=== PATIENT | female | born 1975 | race Caucasian/White ===

== ENCOUNTER 2016-08-20 12:25 | Emergency (ER) | payer MEDICAID, OTHER ==
[~2016-08-20] VITALS: Ht 149.9 cm; Wt 60.9 kg
[2016-08-20 12:41] VITALS: BP 113/67; PULSE 83; RESP 16; TEMP 98.3; O2SAT 99
--- NOTE | 2016-08-20 13:05 | PD ---
HPI Chief Complaint: Eye Problems/Injury Time Seen by Provider: 13:05 Travel History International Travel<30 days: No Contact w/Intl Traveler<30days: No Traveled to known affect area: No History of Present Illness HPI 41-year-old female presents to the ED for evaluation of 3 day history of left eye redness, pain and swelling of the eyelid. Gradual onset. Patient denies blurred vision, headaches. She states the pain radiates to the left side of her mouth. She treated with warm compresses 10 minutes at a time 4-5 times a day with no improvement of pain. She states that she also tried to squeeze the area. She also complains of foreign body sensation and blurred vision of the right eye. Onset yesterday afternoon. She states that she was helping kids clean up glitter and feels as if a piece may be in her eye. She rinsed multiple times with artificial tears with no improvement of symptoms. PFSH Past Medical History Medical History: Denies Significant Hx Diminished Hearing: No Tetanus Vaccination: < 5 Years Influenza Vaccination: No ?: Unknown LMP: 08/01/16 Social History Alcohol Use: No Tobacco Use: Yes (5 cigs day) Substance Use: No Allergies-Medications (Allergen,Severity, Reaction): Coded Allergies: No Known Allergies (Unverified , 08/20/16) Reported Meds & Prescriptions Reported Meds & Active Scripts Active Erythromycin Opth Oint 5 Mg/Gm Oint 1 Applic EACH EYE QID Review of Systems Except as stated in HPI: all other systems reviewed are Neg Physical Exam Narrative GENERAL: Well-nourished, well-developed white female in no acute distress. SKIN: Focused skin assessment warm/dry. Bruising and edema around the left eye. HEAD: Normocephalic. EYES: No scleral icterus. PERRLA. EOMI. Increased drainage bilaterally. FUNDUSCOPIC EXAM: The bilateral funduscopic exam appeared within normal limits without papilledema, A-V nicking or blood associated with the optic disc. OD: There is a small metallic foreign body just slightly right of center over the pupil. This was easily removed with a Q-tip. Fluorescein staining reveals corneal abrasion in the same area. No disturbance of the palpebral surface. OS: There is a 1 cm hordeolum of the lower lid, just lateral to the medial canthus. It's erythematous, tender and warm. Fluorescein staining reveals no corneal abrasion. NECK: Supple, trachea midline. No JVD or lymphadenopathy. CARDIOVASCULAR: Regular rate and rhythm without murmurs, gallops, or rubs. RESPIRATORY: Breath sounds equal bilaterally. No accessory muscle use. GASTROINTESTINAL: Abdomen soft, non-tender, nondistended. MUSCULOSKELETAL: No cyanosis, or edema. The patient is a laboratory moves extremities spontaneously. BACK: Nontender without obvious deformity. No CVA tenderness. Data Data Last Documented VS Vital Signs Date Time Temp Pulse Resp B/P Pulse Ox O2 Delivery O2 Flow Rate FiO2 08/20/16 12:41 98.3 83 16 113/67 99 Orders Ibuprofen (Motrin) (08/20/16 13:30) MDM Medical Decision Making Medical Screen Exam Complete: Yes Emergency Medical Condition: Yes Differential Diagnosis Hordeolum versus chalazion versus foreign body versus renal abrasion versus other Narrative Course 41-year-old female presents to the ED for evaluation of 3 day history of left eye redness, pain and swelling of the eyelid. Gradual onset. Patient denies blurred vision, headaches. She states the pain radiates to the left side of her mouth. She treated with warm compresses 10 minutes at a time 4-5 times a day with no improvement of pain. She states that she also tried to squeeze the area. She also complains of foreign body sensation and blurred vision of the right eye. Onset yesterday afternoon. She states that she was helping kids clean up glitter and feels as if a piece may be in her eye. She rinsed multiple times with artificial tears with no improvement of symptoms. Vitals reviewed. Physical exam reveals a nontoxic-appearing white female in no acute distress. EYES: No scleral icterus. PERRLA. EOMI. Increased drainage bilaterally. Limited funduscopic exam normal bilaterally. OD: There is a small metallic foreign body just slightly right of center over the pupil. This was easily removed with a Q-tip. Fluorescein staining reveals corneal abrasion in the same area. No disturbance of the palpebral surface. OS: There is a 1 cm hordeolum of the lower lid, just lateral to the medial canthus. It's erythematous, tender and warm. Fluorescein staining reveals no corneal abrasion. Foreign body removal was performed. Please see my procedure note for details. I spoke with Dr. Nicole Preciado, on-call ice cream server, who agrees to see the patient on an outpatient basis. Patient was prescribed erythromycin ointment 4 times a day for bilateral eyes, she was provided with Dr. Preciado's contact information and instructed to follow up today. She indicated understanding of the instructions and is agreeable to the care plan. The patient is stable and discharged home. Procedures Procedure Narrative Foreign body removal: A single drop of proparacaine was instilled into the right eye. A Q-tip was used to remove a miniscule metallic foreign object from the center of the pupil, consistent with glitter. Fluorescein staining reveals corneal abrasion in the same area. The eye was flushed with copious saline. Patient tolerated the procedure well. Diagnosis Primary Impression: Foreign body of right eye Qualified Code: T15.91XA - Foreign body of right eye, initial encounter Additional Impressions: History of retained foreign body fully removed Corneal abrasion, right Qualified Code: S05.01XA - Corneal abrasion, right, initial encounter Hordeolum internum left lower eyelid Referrals: Nicole Preciado MD Patient Instructions: Corneal Abrasion (ED), General Instructions, Stye (ED) Additional Instructions: Rest, hydrate. Continue with warm compresses of the left eye 15-20 minutes at a time, 5-6 times per day. Polytrim 1 drop 4 times a day [address] Nicole Preciado's office today for follow-up appointment. Return to the ED for any urgent or emergent medical condition. Med/Other Pt SpecificInfo: Prescription(s) given Scripts Erythromycin Opth Oint 5 Mg/Gm Oint1 Applic EACH EYE QID #1 TUBE Ref 0 Prov:Hannah Lowe MD 08/20/16 Disposition: 01 DISCHARGE HOME Condition: Stable Kindra Irby Aug 20, 2016 13:05
[2016-08-20] MEDS ORDERED: IBUPROFEN 800 MG TAB PO ONE (13:30)
[2016-08-20] MEDS ORDERED: ERYTOIN10 EACH EYE (13:40)
== END 2016-08-20 13:44 | disposition home or self-care (01) ==
LOC: PHEFT 12:25
DX: S05.01XA Injury of conjunctiva and corneal abrasion without foreign body, right eye, initial encounter (principal); T15.91XA Foreign body on external eye, part unspecified, right eye, initial encounter; Z72.0 Tobacco use
CPT/HCPCS: 65220

== ENCOUNTER 2016-11-18 05:36 | Emergency (ER) | payer MEDICAID, OTHER ==
[~2016-11-18] VITALS: Ht 162.6 cm; Wt 60.0 kg
[~2016-11-18 05:36] MED LIST: ERYTOIN10 EACH EYE
[2016-11-18 05:42] VITALS: BP 134/86; PULSE 100; RESP 20; TEMP 99.2; O2SAT 98
[2016-11-18] MEDS ORDERED: SUBO8MIS SL (05:49)
[2016-11-18] MEDS ORDERED: ONDANSETRON ODT 4 MG TAB PO ONE (06:00)
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
[2016-11-18] MEDS ORDERED: IBUP800T23 PO (07:13)
== END 2016-11-18 07:41 | disposition home or self-care (01) ==
LOC: NEPD 05:36
DX: M54.2 Cervicalgia (principal); S00.83XA Contusion of other part of head, initial encounter; S50.12XA Contusion of left forearm, initial encounter; S80.01XA Contusion of right knee, initial encounter; F17.210 Nicotine dependence, cigarettes, uncomplicated; Z79.899 Other long term (current) drug therapy; Z88.6 Allergy status to analgesic agent; Y08.09XA Assault by strike by other specified type of sport equipment, initial encounter
CPT/HCPCS: 70450; 70486; 72125; 73630; 99285

== ENCOUNTER 2017-06-05 11:05 | Emergency (ER) | payer OTHER ==
[~2017-06-05 11:05] MED LIST changes: +IBUP1TAB7 PO; +SUBO8MIS SL
[2017-06-05 11:18] VITALS: BP 115/58; PULSE 71; RESP 16; TEMP 99; O2SAT 98
[2017-06-05] MEDS ORDERED: SODIUM CHLOR 0.9% 1000 ML INJ 1,000 ML IV SCH (11:50)
[2017-06-05] MEDS ORDERED: ALPR.5 PO (11:50)
--- NOTE | 2017-06-05 11:54 | PD ---
HPI Chief Complaint: GI Complaint Time Seen by Provider: 11:37 Travel History International Travel<30 days: No Contact w/Intl Traveler<30days: No Traveled to known affect area: No History of Present Illness HPI 42-year-old female presents for evaluation of abdominal pain, nausea, vomiting, diarrhea. She woke up at 3 AM this morning since then has had multiple episodes of nonbloody nonbilious emesis, watery diarrhea. She tried drinking eloisa katerina and was able to keep down only a few sips. She endorses some crampy discomfort in the epigastrium as well as slight cough, myalgias, mild sore throat. Her daughter was recently diagnosed with streptococcal pharyngitis. Denies dysuria, flank pain, vaginal bleeding or discharge. No history of abdominal surgeries. No other complaints at this time. PFSH Past Medical History Diabetes: No Diminished Hearing: No Immunizations Current: Yes Migraines: Yes Tetanus Vaccination: < 5 Years Influenza Vaccination: No ?: Not LMP: 05/10/17 : 2 Para: 2 Tubal Ligation: Yes Past Surgical History Section: Yes Social History Alcohol Use: Yes (OCCASIONAL) Tobacco Use: Yes (5 cigs day) Substance Use: No Allergies-Medications (Allergen,Severity, Reaction): Coded Allergies: aspirin (Verified Allergy, Unknown, 06/05/17) Reported Meds & Prescriptions Reported Meds & Active Scripts Active Zofran (Ondansetron HCl) 4 Mg Tab 4 Mg PO Q6HR PRN Reported Xanax (Alprazolam) 0.5 Mg Tab 0.5 Mg PO BID PRN Suboxone Sublingual Film (Buprenorphine-Naloxone Sublingual Film) 8-2 Mg Film 1 Film SL Unique ID number required: Review of Systems Except as stated in HPI: all other systems reviewed are Neg Physical Exam Narrative GENERAL: Well-developed well-nourished female in no acute distress SKIN: Warm and dry. HEAD: Atraumatic. Normocephalic. EYES: Pupils equal and round. No scleral icterus. No injection or drainage. ENT: No nasal bleeding or discharge. Mucous membranes pink and moist. NECK: Trachea midline. No JVD. CARDIOVASCULAR: Regular rate and rhythm. No murmur appreciated. RESPIRATORY: No accessory muscle use. Clear to auscultation. Breath sounds equal bilaterally. GASTROINTESTINAL: Abdomen soft, mild tenderness to palpation in the epigastrium and suprapubic region without guarding. No tenderness to palpation over McBurney's point, no right upper quadrant tenderness. MUSCULOSKELETAL: No obvious deformities. No clubbing. No cyanosis. No edema. NEUROLOGICAL: Awake and alert. No obvious cranial nerve deficits. Motor grossly within normal limits. Normal speech. PSYCHIATRIC: Appropriate mood and affect; insight and judgment normal. Data Data Last Documented VS Vital Signs Date Time Temp Pulse Resp B/P (MAP) Pulse Ox O2 Delivery O2 Flow Rate FiO2 06/05/17 11:18 99.0 71 16 115/58 (77) 98 Orders Orders Ed Urine Pregnancytest Poc (06/05/17 11:38) Complete Blood Count With Diff (06/05/17 11:50) Comprehensive Metabolic Panel (06/05/17 11:50) Lipase (06/05/17 11:50) Urinalysis - C+S If Indicated (06/05/17 11:50) Iv Access Insert/Monitor (06/05/17 11:50) Ondansetron Inj (Zofran Inj) (06/05/17 12:00) Pantoprazole Inj (Protonix Inj) (06/05/17 12:00) Sodium Chlor 0.9% 1000 Ml Inj (Ns 1000 M (06/05/17 11:50) Al-Mag Hy-Si 40-40-4 Mg/Ml Liq (Mag-Al P (06/05/17 12:00) Lidocaine 2% Viscous (Xylocaine 2% Visco (06/05/17 12:00) Influenzae A/B Antigen (06/05/17 11:50) Group A Rapid Strep Screen (06/05/17 11:50) Strep Culture (Group A) (06/05/17 12:12) Urine Culture (06/05/17 11:58) Ed Discharge Order (06/05/17 13:13) Labs Laboratory Tests Test 06/05/17 11:58 06/05/17 12:12 Urine Collection Type CLEAN CATCH Urine Color YELLOW Urine Turbidity SLIGHT Urine pH 7.5 Urine Specific [place] 1.025 Urine Protein NEG mg/dL Urine Glucose (UA) NEG mg/dL Urine Ketones NEG mg/dL Urine Occult Blood NEG Urine Nitrite POS Urine Bilirubin NEG Urine Leukocyte Esterase NEG Urine RBC 0-3 /hpf Urine WBC 3-5 /hpf Urine Squamous Epithelial Cells 6-8 /hpf Urine Amorphous Sediment FEW Urine Bacteria MANY /hpf Microscopic Urinalysis Comment CULTURE INDICATED Urine Collection Time 1158 White Blood Count 9.4 TH/MM3 Red Blood Count 4.19 MIL/MM3 Hemoglobin 12.8 GM/DL Hematocrit 39.2 % Mean Corpuscular Volume 93.6 FL Mean Corpuscular Hemoglobin 30.6 PG Mean Corpuscular Hemoglobin Concent 32.7 % Red Cell Distribution Width 13.1 % Platelet Count 241 TH/MM3 Mean Platelet Volume 7.8 FL Neutrophils (%) (Auto) 69.0 % Lymphocytes (%) (Auto) 21.8 % Monocytes (%) (Auto) 5.4 % Eosinophils (%) (Auto) 0.4 % Basophils (%) (Auto) 3.4 % Neutrophils # (Auto) 6.5 TH/MM3 Lymphocytes # (Auto) 2.1 TH/MM3 Monocytes # (Auto) 0.5 TH/MM3 Eosinophils # (Auto) 0.0 TH/MM3 Basophils # (Auto) 0.3 TH/MM3 CBC Comment DIFF FINAL Differential Comment Blood Urea Nitrogen 16 MG/DL Creatinine 0.74 MG/DL Random Glucose 88 MG/DL Total Protein 7.3 GM/DL Albumin 3.6 GM/DL Calcium Level 8.5 MG/DL Alkaline Phosphatase 63 U/L Aspartate Amino Transf (AST/SGOT) 18 U/L Alanine Aminotransferase (ALT/SGPT) 21 U/L Total Bilirubin 0.3 MG/DL Sodium Level 140 MEQ/L Potassium Level 4.4 MEQ/L Chloride Level 107 MEQ/L Carbon Dioxide Level 27.0 MEQ/L Anion Gap 6 MEQ/L Estimat Glomerular Filtration Rate 87 ML/MIN Lipase 50 U/L [facility] Medical Decision Making Medical Screen Exam Complete: Yes Emergency Medical Condition: Yes Medical Record Reviewed: Yes Differential Diagnosis Gastroenteritis, gastritis, pancreatitis, diverticulitis, mesenteric adenitis, cystitis, colitis Narrative Course 42-year-old female with a history of nausea, vomiting, diarrhea, abdominal pain , myalgias, slight sore throat and cough. On examination she has tenderness in the epigastrium and suprapubic region which is mild. Plan is for basic lab work. She will be given IV fluids, Protonix, GI cocktail, Zofran. On reexamination the patient feels significantly improved, abdominal discomfort and nausea have resolved. Her lab work is reassuring. Her urinalysis does reveal positive nitrites, contaminated with 6 days squamous epithelial cells, many bacteria, cultures currently pending. The patient is not having any UTI symptoms currently and therefore antibiotics will be deferred pending culture results. Her history is consistent with gastroenteritis. She will be discharged with a short course of Zofran. Diagnosis Primary Impression: Gastroenteritis Additional Instructions: Medication as needed for nausea. Slowly advanced diet as tolerated. Follow-up with primary care physician and return for any emergent medical conditions. Med/Other Pt SpecificInfo: Prescription(s) given Scripts Ondansetron (Zofran) 4 Mg Tab 4 MG PO Q6HR Y for NAUSEA OR VOMITING, #20 TAB 0 Refills Prov: Jean Marie Roth MD 06/05/17 Disposition: 01 DISCHARGE HOME Condition: Stable Ganesh Urbina Jun 05, 2017 11:54
[2017-06-05] MEDS ORDERED: PANTOPRAZOLE SODIUM 40 MG VIAL IVP ONE (12:00)
[2017-06-05] MEDS ORDERED: ALUMINUM/MAGNESIUM/SIMETH 30 ML CUP PO ONE (12:00)
[2017-06-05] MEDS ORDERED: ONDANSETRON HCL 4 MG/2 ML VIAL IVP ONE (12:00)
[2017-06-05] MEDS ORDERED: LIDOCAINE VISCOUS 2% SOLN 15 ML UDC PO ONE (12:00)
[2017-06-05 12:24] LABS: AUTOMATED NEUTROPHIL # 6.5 TH/MM3 (1.8-7.7); BASOPHIL # 0.3 TH/MM3 (0-0.2); BASOPHIL % 3.4 % (0.0-2.0); EOSINOPHIL % 0.4 % (0.0-4.0); HEMATOCRIT 39.2 % (35.0-46.0); HEMOGLOBIN 12.8 GM/DL (11.6-15.3); LYMPH % 21.8 % (9.0-44.0); LYMPHOCYTE # 2.1 TH/MM3 (1.0-4.8); MEAN CELL VOLUME 93.6 FL (80.0-100.0); MEAN CORPUSCULAR HEMOGLOBIN 30.6 PG (27.0-34.0); MEAN CORPUSCULAR HGB CONC 32.7 % (32.0-36.0); MEAN PLATELET VOLUME 7.8 FL (7.0-11.0); MONO % 5.4 % (0.0-8.0); MONOCYTE # 0.5 TH/MM3 (0-0.9); PLATELET COUNT 241 TH/MM3 (150-450); RED BLOOD COUNT 4.19 MIL/MM3 (4.00-5.30); RED CELL DISTRIBUTION WIDTH 13.1 % (11.6-17.2); WHITE BLOOD COUNT 9.4 TH/MM3 (4.0-11.0)
[2017-06-05 12:26] LABS: BILIRUBIN, URINE NEG (NEG); BLOOD, URINE NEG (NEG); GLUCOSE,URINE NEG (NEG); KETONE, URINE NEG (NEG); NITRITE,URINE POS (NEG); PH, URINE 7.5 (5.0-8.5); URINE LEUKOCYTE ESTERASE NEG (NEG)
[2017-06-05 12:42] LABS: URINE COLOR YELLOW (YELLW/STRAW)
[2017-06-05 12:43] LABS: AMORPHOUS SEDIMENT, URINE FEW; BACTERIA, URINE MANY /hpf; RBC, URINE 0-3 /hpf (0-3)
[2017-06-05 12:51] LABS: CHLORIDE 107 MEQ/L (98-107); SODIUM (NA) 140 MEQ/L (136-145)
[2017-06-05 12:59] LABS: ALBUMIN 3.6 GM/DL (3.4-5.0); BLOOD UREA NITROGEN 16 MG/DL (7-18); CALCIUM 8.5 MG/DL (8.5-10.1); GLUCOSE,RANDOM 88 MG/DL (74-106)
[2017-06-05 13:02] LABS: ALT (GPT) 21 U/L (10-53); AST (GOT) 18 U/L (15-37); CREATININE 0.74 MG/DL (0.50-1.00); GLOMERULAR FILTRATION RATE 87 ML/MIN (>89)
[2017-06-05 13:03] LABS: TOTAL BILIRUBIN ADULT 0.3 MG/DL (0.2-1.0)
[2017-06-05 13:04] LABS: TOTAL PROTEIN 7.3 GM/DL (6.4-8.2)
[2017-06-05 13:07] LABS: ALKALINE PHOSPHATASE 63 U/L (45-117)
[2017-06-05] MEDS ORDERED: ZOFR4TAB PO (13:13)
[2017-06-05 13:17] VITALS: BP 103/59; PULSE 72; RESP 16; O2SAT 100
== END 2017-06-05 13:46 | disposition home or self-care (01) ==
LOC: PHEFT 11:05
DX: K52.9 Noninfective gastroenteritis and colitis, unspecified (principal); J02.9 Acute pharyngitis, unspecified; F17.210 Nicotine dependence, cigarettes, uncomplicated; R82.71 Bacteriuria
CPT/HCPCS: 80053; 81001; 83690; 84703; 85025; 87077; 87081; 87086; 87186; 87804; 87880; 96361; 96374; 96375; 99283; C9113; J2405; J7030

== ENCOUNTER 2017-08-26 11:41 | Emergency (ER) | payer SELFPAY ==
[~2017-08-26] VITALS: Ht 149.9 cm; Wt 68.4 kg
[~2017-08-26 11:41] MED LIST changes: +ALPR.5 PO; -ERYTOIN10 EACH EYE; -IBUP1TAB7 PO; +ZOFR4TAB PO
[2017-08-26 11:44] VITALS: BP 151/65; PULSE 86; RESP 18; TEMP 97.8; O2SAT 97
[2017-08-26] MEDS ORDERED: KETOROLAC TROMETHAMINE 60 MG/2 ML (IM) VIAL IM ONE (12:15)
[2017-08-26] MEDS ORDERED: ORPHENADRINE INJ 60 MG/2 ML AMP IM ONE (12:15)
[2017-08-26] MEDS ORDERED: IBUP1TAB7 PO (12:18)
[2017-08-26] MEDS ORDERED: ROBA500T PO (12:25)
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
--- NOTE | 2017-08-26 13:28 | RADRPT ---
EXAM DATE/TIME: 08/26/2017 12:54 [facility] COMPARISON: No previous studies available for comparison. INDICATIONS : Left shoulder pain post fall MEDICAL HISTORY : Renal calculi. Asthma SURGICAL HISTORY : Tubal ligation. section. ENCOUNTER: Initial ACUITY: 2 days PAIN SCORE: 6/10 LOCATION: Left entire shoulder FINDINGS: Multiple views left shoulder were obtained and demonstrate no acute fracture or malalignment. There a re adjacent calcific or ossific structures along the lateral humeral head measuring up to 9 x 6 mm in greatest diameter. These appear well-corticated. The glenohumeral joint appears intact. The acromioc lavicular joint is intact. CONCLUSION: 1. No acute fracture or malalignment. 2. Multiple small adjacent calcific or ossific structures along the lateral humeral head which may be related to remote trauma or calcific tendinitis. Jah Calvo MD on August 26, 2017 at 13:25 Board Certified Radiologist. This report was verified electronically.
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
== END 2017-08-26 14:45 | disposition home or self-care (01) ==
LOC: PHEFT 11:41
DX: S13.4XXA Sprain of ligaments of cervical spine, initial encounter (principal); S40.012A Contusion of left shoulder, initial encounter; S00.83XA Contusion of other part of head, initial encounter; J45.909 Unspecified asthma, uncomplicated; F41.9 Anxiety disorder, unspecified; F17.210 Nicotine dependence, cigarettes, uncomplicated; Y04.2XXA Assault by strike against or bumped into by another person, initial encounter; Z79.899 Other long term (current) drug therapy; Z87.442 Personal history of urinary calculi
CPT/HCPCS: 70450; 72125; 73030; 96372; 99284; J1885; J2360